=== PATIENT | male | born 1995 | race Hispanic/Latino ===

== ENCOUNTER 2017-06-21 10:59 | Emergency (ER) | payer OTHER ==
[2017-06-21] MEDS ORDERED: LIDOCAINE 1% MDV INJ 50 ML VIAL SC (12:45)
[2017-06-21] MEDS: LIDOCAINE 1% MDV 20ML VIAL SC (12:45)
== END 2017-06-21 13:52 | disposition home or self-care (01) ==
LOC: M ED 10:59
DX: S01.312A Laceration without foreign body of left ear, initial encounter (principal); W22.8XXA Striking against or struck by other objects, initial encounter; Y92.89 Other specified places as the place of occurrence of the external cause
CPT/HCPCS: 12011

== ENCOUNTER 2019-03-29 08:35 | Emergency (ER) | payer OTHER ==
[~2019-03-29] VITALS: Ht 170.2 cm; Wt 95.6 kg
[2019-03-29 08:35] VITALS: BP 175/90
--- NOTE | 2019-03-29 09:14 | REP ---
Nasal bone series: Three views. History: Injury in a fall. Findings: Romero and lateral views demonstrate a depressed fracture of the bony tip of the nasal bone. Inferior maxillary spine is intact. Orbital margins and maxillary and frontal sinus margins appear intact. Impression: Depressed fracture of the tip of the nasal bone. Electronically Signed by Julián Izquierdo MD 03/29/2019 09:06 A
== END 2019-03-29 09:50 | disposition home or self-care (01) ==
LOC: M ED 08:35
DX: S02.2XXA Fracture of nasal bones, initial encounter for closed fracture (principal); W19.XXXA Unspecified fall, initial encounter